=== PATIENT | male | born 1990 | race African-American/Black ===

== ENCOUNTER 2018-01-15 02:56 | Emergency (ER) | payer OTHER ==
[~2018-01-15] VITALS: Ht 182.9 cm; Wt 81.7 kg
[2018-01-15 03:09] VITALS: BP 170/120
[2018-01-15] MEDS ORDERED: NOHOMEMEDICATIONS (03:15)
[2018-01-15] MEDS ORDERED: ULTRAM 50MG TAB50 MG PO (04:28)
[2018-01-15] MEDS ORDERED: IBUPROFEN 600600 M1 PO (04:28)
== END 2018-01-15 04:37 | disposition home or self-care (01) ==
LOC: ER 02:56
DX: K02.9 Dental caries, unspecified (principal); F17.210 Nicotine dependence, cigarettes, uncomplicated; Z88.0 Allergy status to penicillin